=== PATIENT | female | born 1960 | race Caucasian/White ===

== ENCOUNTER 2017-12-22 08:28 | Outpatient (CLI) | payer OTHER ==
--- NOTE | 2017-12-22 11:08 | RAD ---
BARIUM SWALLOW: COMPARISON: None. HISTORY: Status post laparoscopic band in 2007. The patient complains of intermittent chest pain. FINDINGS: A double contrast barium swallow was performed. A gastric band is in good position at the gastroesop hageal junction. Esophageal motility is abnormal with multiple tertiary contractions. The esophagus is dilated. Contrast passes through the band and into the stomach, but at a slower rate. No reflux of contrast from the stomach through the gastric band into the esophagus is seen. IMPRESSION: Status post gastric band procedure with enlargement of the esophagus and delayed esophageal motility. POS: RACHEL
== END 2017-12-22 08:29 | disposition home or self-care (01) ==
LOC: RAD 08:28
PROVIDERS: ATTEND Surgery
DX: E66.01 Morbid (severe) obesity due to excess calories (principal); K22.8 Other specified diseases of esophagus; Z98.890 Other specified postprocedural states
CPT/HCPCS: 74220

== ENCOUNTER 2017-12-30 08:53 | Outpatient (CLI) | payer OTHER | END 2017-12-30 08:54 | disposition home or self-care (01) | LOC: DTY/OP 08:53 | PROVIDERS: ATTEND Surgery | DX: E66.01 Morbid (severe) obesity due to excess calories (principal); E78.00 Pure hypercholesterolemia, unspecified | CPT/HCPCS: 97802 ==

== ENCOUNTER 2018-01-27 08:54 | Outpatient (CLI) | payer OTHER | END 2018-01-27 08:55 | disposition home or self-care (01) | LOC: DTY/OP 08:54 | PROVIDERS: ATTEND Surgery | DX: E66.01 Morbid (severe) obesity due to excess calories (principal); E78.00 Pure hypercholesterolemia, unspecified | CPT/HCPCS: 97802 ==

== ENCOUNTER 2018-03-03 09:00 | Outpatient (CLI) | payer OTHER | END 2018-03-03 09:01 | disposition home or self-care (01) | LOC: DTY/OP 09:00 | PROVIDERS: ATTEND Surgery | DX: E66.01 Morbid (severe) obesity due to excess calories (principal); E78.00 Pure hypercholesterolemia, unspecified | CPT/HCPCS: 97802 ==

== ENCOUNTER 2018-03-31 09:01 | Outpatient (CLI) | payer OTHER | END 2018-03-31 09:02 | disposition home or self-care (01) | LOC: DTY/OP 09:01 | PROVIDERS: ATTEND Surgery | DX: E78.00 Pure hypercholesterolemia, unspecified (principal); E66.01 Morbid (severe) obesity due to excess calories | CPT/HCPCS: 97802 ==

== ENCOUNTER 2018-09-15 09:29 | Outpatient (CLI) | payer OTHER ==
[2018-09-15 10:38] LABS: #Basophils 0.1 thou/uL (0.0-0.2); #Eosinphils 0.2 thou/uL (0.0-0.7); #Lymphocytes 2.6 thou/uL (1.20-3.40); #Monocytes 0.8 thou/uL (0.11-0.59); #Neutrophils 4.6 thou/uL (1.40-6.50); %Basophils 1.3 % (0.0-1.0); %Eosinophils 2.8 % (0.0-10.0); %Lymphocytes 30.9 % (21.0-51.0); %Monocytes 9.1 % (0.0-10.0); %Neutrophils 55.8 % (42.0-75.0); Hemoglobin 14.8 g/dL (12.0-16.0); Hemoglobin A1c 5.2 % (4.0-6.0); Mean Corpuscular HGB CONC 31.3 g/dL (32.0-36.0); Mean Corpuscular Hemoglobin 29.4 pg (27.0-31.0); Mean Platelet Volume 8.2 fL (7.4-10.4); Platelet Count 278 thou/uL (130-400); RBC Distribution Width 11.9 % (11.5-14.5); Red Blood Cell (RBC) Count 5.03 mill/uL (4.20-5.40); White Blood Cell (WBC) Count 8.3 thou/uL (4.8-10.8)
[2018-09-15 10:55] LABS: ALT (SGPT) 16 U/L (8-55); AST (SGOT) 16 U/L (5-34); Albumin 4.1 g/dL (3.5-5.0); Alkaline Phosphatase 95 U/L (40-150); Anion Gap 12 mmol/L (10-20); BUN (Urea Nitrogen) 21 mg/dL (9.8-20.1); Bilirubin, Direct 0.2 mg/dL (0.1-0.3); Bilirubin, Total 0.6 mg/dL (0.2-1.2); Calc. Creatinine Clearance 0 mL/min (70-130); Calcium 11.1 mg/dL (7.8-10.44); Carbon Dioxide 25 mmol/L (22-29); Chloride 104 mmol/L (98-107); Estimated GFR-MDRD 69; Globulin 3.6 g/dL (2.4-3.5); Glucose 100 mg/dL (70-105); Potassium 3.8 mmol/L (3.5-5.1); Protein, Total 7.7 g/dL (6.0-8.3); Sodium 137 mmol/L (136-145)
--- NOTE | 2018-09-15 11:43 | RAD ---
CHEST PA AND LATERAL TWO VIEWS: History: 58-year-old female for preoperative evaluation. Comparison: 12-22-17 pan reclaim processor film from a barium swallow FINDINGS: Heart size is within normal limits. The lungs are clear. There is a very small nodular focus in the r ight lateral chest, possibly an old granuloma. IMPRESSION: No acute intrathoracic disease. Possible tiny nodule in the right lateral chest, this could conceivab ly be a granuloma calcification. In retrospect, this little nodular area is stable from 18 pan reclaim processor film from a barium swallow. POS: PENNY
--- NOTE | 2018-09-15 13:02 | EKG ---
Test Reason : Blood Pressure : / mmHG Vent. Rate : 074 BPM Atrial Rate : 074 BPM P-R Int : 194 ms QRS Dur : 066 ms QT Int : 398 ms P-R-T Axes : 052 052 074 degrees QTc Int : 441 ms Normal sinus rhythm Possible Anterior infarct , age undetermined Abnormal ECG No previous ECGs available Confirmed by SHAUNA BARRAGAN ([id number]) on 09/15/2018 1:02:12 PM Referred By: LORNA Confirmed By:SHAUNA BARRAGAN
== END 2018-09-15 09:30 | disposition home or self-care (01) ==
LOC: LABBT 09:29
PROVIDERS: ATTEND Surgery
DX: Z01.818 Encounter for other preprocedural examination (principal); E66.01 Morbid (severe) obesity due to excess calories; T85.858A Stenosis due to other internal prosthetic devices, implants and grafts, initial encounter
CPT/HCPCS: 71046; 80053; 80076; 82330; 83036; 83970; 85025; 93005; 93010

== ENCOUNTER 2018-09-15 09:30 | Inpatient (IN) | payer OTHER ==
[2018-09-28] MEDS ORDERED: Fentanyl 100 MCG/2 ML VIAL ONE (06:31)
[2018-09-28] MEDS ORDERED: Midazolam HCl 2 mg/2 ml Vial ONE (06:31)
[2018-09-28] MEDS ORDERED: CEFAZOLIN 2 GM/50 ML BAG ONE ×2 (06:37→06:38)
[2018-09-28] MEDS ORDERED: Heparin 5,000 UNITS/ML VIAL ONE (06:38)
[2018-09-28] MEDS ORDERED: Bupivacaine/Epinephrine 0.25% 30 ML VIAL ONE (06:59)
[2018-09-28] MEDS ORDERED: Famotidine/PF 20 mg/2ml Vial ONE (07:14)
[2018-09-28] MEDS ORDERED: Scopolamine 1.5 mg/72 hour Patch ONE (07:15)
[2018-09-28] MEDS ORDERED: Dextrose 5% in Water 1,000 ML IV PRN (09:20)
[2018-09-28] MEDS ORDERED: Dextrose 50% Abboject 50 ML SYRINGE SLOW IVP PRN (09:20)
[2018-09-28] MEDS ORDERED: Ondansetron PF 4 MG/2 ML Vial IVP PRN ×2 (09:20→09:34)
[2018-09-28] MEDS ORDERED: hydrALAZINE 20 MG/ML VIAL SLOW IVP PRN (09:20)
[2018-09-28] MEDS ORDERED: Promethazine HCl 25 MG/ML VIAL IM PRN ×2 (09:20→09:34)
[2018-09-28] MEDS ORDERED: diphenhydrAMINE 50 MG/ML VIAL IVP PRN (09:20)
[2018-09-28] MEDS ORDERED: Hydrocodone-Acetamin 15 ML UDCUP PO PRN (09:20)
[2018-09-28] MEDS ORDERED: CEFAZOLIN/Water 2 GM/20 ML SYRINGE SLOW IVP SCH (09:30)
[2018-09-28] MEDS ORDERED: HYDROmorphone 10 mg/100 ml CADD IVPB PRN (09:34)
[2018-09-28] MEDS ORDERED: Naloxone HCl 0.4 mg/ml Vial IV PRN (09:34)
[2018-09-28] MEDS ORDERED: diphenhydrAMINE 25 MG CAP PO PRN (09:34)
[2018-09-28] MEDS ORDERED: Zolpidem Tartrate 5 MG TAB PO PRN (09:34)
[2018-09-28] MEDS ORDERED: diphenhydrAMINE 50 MG/ML VIAL IM PRN (09:34)
[2018-09-28] MEDS ORDERED: HYDROmorphone 2 MG/ML VIAL ONE (09:43)
[2018-09-28] MEDS ORDERED: Communication Order-Pharmacy FS SCH (09:45)
--- NOTE | 2018-09-28 09:47 | OP ---
DATE OF PROCEDURE: 09/28/2018 PREOPERATIVE DIAGNOSIS: Recurrent morbid obesity, dysfunctional lap band. SURGEON: Ankush Fuentes M.D. PROCEDURE: Laparoscopic removal of lap band and port, sleeve gastrectomy, esophagogastroscopy. INDICATIONS: This is a 58-year-old female who had a lap band placed several years ago, was unable to tolerate it being filled, regained her weight. FINDINGS: Quite a bit of dense adhesions around the EG junction. A 38-[place]izen [place] bougie was used. PROCEDURE IN DETAIL: After informed consent was obtained, the patient was taken to the operating kali m and given general endotracheal anesthesia. She was placed in the supine position. The abdomen was prepped and draped in usual fashion. Local anesthesia infiltrated subcutaneously and deep. A 12 mm incision was performed approximately 8 inches above the xiphoid slightly to the left. Veress needle inserted. Drop test performed. Pneumoperitoneum was created to a volume of 2 liters of carbon diox vicenta. Utilizing a bladeless 12 mm trocar and 0 degree laparoscope, direct visual entry into the abdom inal cavity was performed. Pneumoperitoneum was then created to a pressure of 15 mmHg and the patien t placed in steep reverse Trendelenburg position. Nathansen liver retractor inserted. Left lobe of liver retracted superiorly. Pylorus identified. A 12 mm port placed on the right beneath it and two 12s placed left subcostal, one of which was where the port was. The lap band tubing was divided jus t distal to the connecting pin and then traced down to the buckle. The buckle was dissected out and unlocked. The lap band capsule was incised circumferentially and the lap band was removed from aroun d the stomach. There were a lot of adhesions up that area. The omentum was taken off the greater cu rvature 5 cm from pylorus utilizing the LigaSure. Short gastrics divided with LigaSure, left crura w as defined with the LigaSure. The right crura was defined with the LigaSure because it almost appear ed like there might be a hiatal hernia, but it was just very inflamed in the area. It appeared as th ough the esophagus had some dilatation and I could not define a definite hiatal hernia. The 38-Fren[place] h bougie was inserted, directed into the antrum. The linear 60 mm green load stapler used to divide the antrum to the bougie, gold load along the bougie, a series of blues then as the stomach became th icker towards where the band had been a gold load was used, then a blue load. Intraoperative endosco py was then performed. The video endoscope inserted under direct vision and advanced into the esopha jeane down into the sleeve. The staple line inspected, the pylorus visualized. The staple line inflat ed with air under water. There was no air leak. Stomach decompressed. Scope removed. The remnant stomach removed from the abdomen through the left lateral port site. Then the lap band port was diss ected out and removed. The fascia closed with 0 Vicryl suture and the GraNee needle. Hemostasis was assured. Trocars and retractors removed and the skin closed with interrupted 4-0 Rapide. Dermabond applied. The patient tolerated the procedure well and was transferred to recovery in good condition . Sponge and needle count verified correct x2.
[2018-09-28] MEDS ORDERED: Ondansetron HCl/PF 4 MG/2 ML Vial IVP PRN (10:26)
[2018-09-28] MEDS ORDERED: Promethazine HCl 25 MG/ML VIAL IM/IV PRN (10:26)
[2018-09-28] MEDS ORDERED: HYDROmorphone 2 MG/ML VIAL SLOW IVP PRN (10:26)
[2018-09-28 11:54] VITALS: BMI 45.4
[2018-09-28] MEDS: Ketorolac Tromethamine 30 MG/ML VIAL IVP SCH ×3 (12:21→23:19)
[2018-09-28] MEDS: CEFAZOLIN 2 GM/50 ML-DEXTROSE 2 GM in Premix Bag 1 BAG IVPB SCH ×2 (13:21→21:12)
[2018-09-28] MEDS: diphenhydrAMINE 50 MG/ML VIAL IVP PRN ×2 (13:22→18:49)
[2018-09-28] MEDS ORDERED: Esmolol 100 MG/10 ML VIAL ONE (15:01)
[2018-09-28] MEDS ORDERED: Dexamethasone 20 MG/5 ML VIAL ONE (15:01)
[2018-09-28] MEDS ORDERED: PROPOFOL 200 MG/20 ML VIAL ONE (15:01)
[2018-09-28] MEDS ORDERED: Succinylcholine Chloride 20 MG/ML 10 ml SYRINGE FS ONE (15:01)
[2018-09-28] MEDS ORDERED: ePHEDrine/0.9% NaCl/PF SYRINGE 50 mg/10 ml ONE (15:01)
[2018-09-28] MEDS ORDERED: Ondansetron PF 4 MG/2 ML Vial ONE (15:01)
[2018-09-28] MEDS ORDERED: Glycopyrrolate 0.2 MG/ML 5 ML SYRINGE ONE (15:01)
[2018-09-28] MEDS ORDERED: Lidocaine 1% PF 5 ML VIAL ONE (15:01)
[2018-09-28] MEDS ORDERED: Labetalol HCl 100 MG/20 ML VIAL ONE (15:01)
[2018-09-28] MEDS: D5 1/2 NS w/20 mEq KCL 1,000 ML IV SCH ×2 (15:30→21:12)
[2018-09-29] MEDS: D5 1/2 NS w/20 mEq KCL 1,000 ML IV SCH ×2 (00:31→15:05)
[2018-09-29 04:40] LABS: #Lymphocytes 1.5 thou/uL (1.20-3.40); #Monocytes 1.1 thou/uL (0.11-0.59); #Neutrophils 11.6 thou/uL (1.40-6.50); %Eosinophils 0.1 % (0.0-10.0); %Lymphocytes 10.3 % (21.0-51.0); %Monocytes 7.9 % (0.0-10.0); %Neutrophils 81.8 % (42.0-75.0); Hemoglobin 12.6 g/dL (12.0-16.0); Mean Corpuscular HGB CONC 31.8 g/dL (32.0-36.0); Mean Corpuscular Hemoglobin 30.7 pg (27.0-31.0); Mean Corpuscular Volume 96.5 fL (78.0-98.0); Mean Platelet Volume 9.1 fL (7.4-10.4); Platelet Count 222 thou/uL (130-400); RBC Distribution Width 12.1 % (11.5-14.5); Red Blood Cell (RBC) Count 4.12 mill/uL (4.20-5.40); White Blood Cell (WBC) Count 14.2 thou/uL (4.8-10.8)
[2018-09-29] MEDS: Ketorolac Tromethamine 30 MG/ML VIAL IVP SCH ×2 (05:01→12:06)
[2018-09-29 05:04] LABS: Anion Gap 7 mmol/L (10-20); BUN (Urea Nitrogen) 7 mg/dL (9.8-20.1); Calc. Creatinine Clearance 144 mL/min (70-130); Calcium 9.8 mg/dL (7.8-10.44); Carbon Dioxide 29 mmol/L (22-29); Chloride 105 mmol/L (98-107); Estimated GFR-MDRD 72; Glucose 139 mg/dL (70-105); Sodium 137 mmol/L (136-145)
[2018-09-29] MEDS: diphenhydrAMINE 50 MG/ML VIAL IVP PRN (06:35)
[2018-09-29] MEDS ORDERED: Enoxaparin Sodium 40 MG/0.4 ML SYRINGE SC SCH (09:00)
[2018-09-29] MEDS ORDERED: Pantoprazole 40 MG VIAL IVP SCH (09:00)
--- NOTE | 2018-09-29 10:20 | RAD ---
SINGLE CONTRAST UPPER GI: INDICATION: Recent sleeve procedure. History of prior laparoscopic gastric band with removal prior to current agudelo rgery. RADIATION EXPOSURE DATA: 0.3 minutes intermittent fluoroscopy, 4.6 uGy*^cm2. FINDINGS: There is delayed passage of liquid contrast through the esophagus. The esophagus is dilated and ther e is holdup of contrast to some extent which remains within the distal esophagus throughout the proce dure. Contrast does traverse the postoperative gastric lumen and there is a persistent area of lumin al narrowing proximally, which may relate to the history of prior gastric band. There is no definite evidence of an abnormal leak with limited evaluation of the proximal gastric lumen due to the promin ent narrowing. Subsequent, more distal gastric lumen does opacify with contrast. IMPRESSION: Delayed transit of contrast through the esophagus into the postoperative stomach, where there is pers istent luminal narrowing and irregularity likely due to longstanding gastric band. No definite abnor mal leak is identified under real-time fluoroscopy. As necessary, imaging followup may be obtained. POS: RACHEL
[2018-09-29] MEDS ORDERED: Hydrocodone-Acetamin 15 ML UDCUP PO PRN (12:17)
--- NOTE | 2018-09-29 12:58 | DIS ---
DATE OF ADMISSION: 09/28/2018 DATE OF DISCHARGE: 09/29/2018 DISCHARGE DIAGNOSES: Morbid obesity, lap band intolerance, primary hyperparathyroidism with left low er gland parathyroid adenoma. PROCEDURES DURING ADMISSION: Laparoscopic removal of band and port, sleeve gastrectomy, parathyroid scan, postoperative Gastrografin swallow, intraoperative esophagogastroscopy. HOSPITAL COURSE: The patient was admitted, taken to the operating room where she underwent sleeve ga strectomy and removal of the band and port. EGD was fine. Postoperatively, she had a Gastrografin s wallow. She was started on liquid. She is tolerating them well. She also had a parathyroid scan, w [facility] lights up a nodule in the left lower gland consistent with parathyroid adenoma. She is tolerati ng liquids well. She is discharged home in good condition on hydrocodone and Zofran. She will follo w up with me in 2 weeks. She is also going to follow up with her ENT doctor, Dr. Thompson.
--- NOTE | 2018-09-29 13:01 | NM ---
RADIONUCLIDE PARATHYROID SCAN WITH PLANAR AND SPECT CT IMAGING: HISTORY: A 58-year-old female with hyperparathyroidism and hypercalcemia. PTH level on 09/15/2018 measured 13 3.7 (normal 20-88) and serum calcium 11.1 (normal 7.8-10.44), FINDINGS: There is physiologic activity in the salivary glands and in the thyroid gland. There is a small foca l area of persistent increased uptake in the region of the left inferior parathyroid gland. IMPRESSION: Left inferior parathyroid adenoma. POS: RACHEL
[2018-09-29 13:12] VITALS: BP 127/64; TEMP 98.5
== END 2018-09-29 15:09 | disposition home or self-care (01) | DRG 621 ==
LOC: SURG A 09-28 05:55
PROVIDERS: ADMIT Surgery; ATTEND Surgery
PROC: 0DP64CZ Removal of Extraluminal Device from Stomach, Percutaneous Endoscopic Approach (ICD-10-PCS; principal; 2018-09-28)
PROC: 0DB64Z3 Excision of Stomach, Percutaneous Endoscopic Approach, Vertical (ICD-10-PCS; 2018-09-28)
PROC: 0DJ08ZZ Inspection of Upper Intestinal Tract, Via Natural or Artificial Opening Endoscopic (ICD-10-PCS; 2018-09-28)
DX: E66.01 Morbid (severe) obesity due to excess calories (principal); Z68.42 Body mass index [BMI] 45.0-49.9, adult
CPT/HCPCS: 36415; 74241; 78072; 80048; 85025; 88307; 88312; 94760; A9500; C9113; J1100; J1170; J1200; J1644; J1650; J1885; J2001; J2250; J2405; J2704; J3010; S0028